=== PATIENT | male | born 1960 ===

== ENCOUNTER 2024-02-16 14:11 | Outpatient (RCR) | payer MEDICARE, SELFPAY ==
--- NOTE | 2024-02-16 15:43 | PT.OPE ---
[facility] Eval Start: 02/16/24 12:09 Freq: Status: Active Protocol: Document 02/16/24 15:42 CJT (Rec: 02/16/24 15:43 CJT [id number]) E-signed By Louis Ware PT Physical Therapy Outpatient Evaluation Insurance Information Recert Due Date 05/16/24 Insurance Name Medicaid,are Medical Diagnosis R sciatica Treating Diagnosis LBP with R sciatica Referring Hugh Srinivasan Subjective Preferred Name Ismael Subjective Pt presents with complaints of low back pain and R side sciatica. Was blowing leaves about 10 days ago for about 3 hours with a backpack blower. Pain is mostly in the upper right butt cheek. Pain extends down the front of pts jerome on R side. Pt notes that he compressed a disc years ago and traction was especially helpful. Sitting for extended periods (>60 minutes) causes significant pain. Walking helps. Taking a few Tylenol before bed. Pain Comments 09/20 Date of Last Physician Visit 02/13/24 Current Work Status Retired Precautions Therapy Limitations/Systems Review Not Limited Objective Other/Pertinent Objective Lumbar ROM Extension - no limitations, no pain Flexion - limited by abdominal mass, no pain R/L Side Bend - no limitations , no pain R/L Rotation - limited by abdominal mass, no pain R Hip ROM Flexion - 100 *limited by abdominal mass IR/ER - 19/35 Extension - DNT, pt unable to lay prone L Hip ROM Flexion - 100, limited by abdominal mass IR/ER - 32/35 Extension - DNT, pt unable to lay prone R Hip Strength Flexion - 5/5 MMT Abduction - 4/5 MMT Adduction - 5/5 MMT IR - 5/5 MMT ER - 5/5 MMT Extension - 4/5 MMT L Hip Strength Flexion - 5/5 MMT Abduction - 5/5 MMT Adduction - 5/5 MMT IR - 5/5 MMT ER - 5/5 MMT Extension - 4+/5 MMT R knee Extension - 5/5 MMT R Knee Flexion - 5/5 MMT L knee Extension - 5/5 MMT L knee Flexion - 5/5 MMT R ankle DF - 5/5 MMT L ankle DF - 5/5 MMT Gait: Special Testing Slump: negative B SLR: negative B FADIR: negative MYRNA: positive for reduced ROM in L>R hips Gypsy's: DNT Piriformis: DNT Hamstring: positive for increased tissue tension, no pain Pelvis: Unable Leg Length (R/L): unable Assessment Assessment/Impression Ismael is a very pleasant 63 year old male who presents to our clinic for evaluation and treatment of low back pain with R side sciatica. Testing today is inconclusive for exact cause of pts pain and I was unable to reproduce his symptoms in the clinic today. This is likely due to his current regimen of prednisone. With pts subjective report of nerve pain along his R jerome, he is likely suffering from nerve impingement at L5/S1 spine level due to disc herniation or foraminal stenosis. Neither flexion nor extension of the lumbar spine reproduced his pain and he was pain free in our clinic throughout today's exam. We utilized traction today as this has been helpful for Ismael in the past when he has suffered from similar symptoms . The nature of the pts condition was explained and all questions were answered to the pts satisfaction. Skilled PT services are medically necessary to address deficits and return patient to highest level of function. Recommend physical therapy sessions 1-2/ week for 4 weeks. Pt would like to see how his symptoms progress and call to schedule if he needs to return. Printout of HEP was given for I completion and pt gives verbal understanding of each exercise. If pt does not return to our clinic in next 30 days, this note will serve as his d/c note. Primary Functional Limitations Sitting Plan of Care Rehabilitation Potential Good Physical Therapy Goals STG - To be completed in 2-3 weeks: 1. Pt will report reduction in back pain by factor of 2 so that they may perform all ADLs with tolerable level of pain. 2. Pt will demonstrate ability to perform pelvic tilt with good coordination as indication of appropriate firing of pelvic and lumbar stabilizing muscles to provide greater support for pelvis and lumbar spine. 3. Pt will demonstrate 5/5 MMT for all LE motions without reproduction of pain to provide greater support to pelvis and lumbar spine. LTG - To be completed in 4 weeks: 1. Pt to be I with HEP so that they may I manage progression of symptoms. 2. Pt will report absence of back and leg pain with all activities so that he may return to completion of all ADLs without pain. Treatment Plan/Direct Interventions Electrical Stimulation,Joint Mobilization,Manual Therapy, Neuromuscular Re-ed,Self-Care/ Home Management,Therapeutic Activities,Therapeutic Exercises Frequency/Duration 1-2/week for 4 weeks Patient Will Be Discharged From Therapy Completion of LTG(s),Skills Plateau,Independent w/HEP, Independently Progressing Evaluation Billing Untimed Code Treatment Minutes 54 PT Eval No Charge No Complexity Low Certification Information Initial Certification Date 02/16/24 Ending Certification Date 05/16/24 Provider Signature Required Yes Provider Signature Shows Agreement With POC & Medical Necessity Physician NPI Number Write NPI# Here Physician Comment/Change : Physician Signature & Date Requested Please Sign/Date Here
== END 2024-04-20 15:56 | disposition home or self-care (01) ==
PROVIDERS: Visit Provider Family Medicine
DX: M54.41 Lumbago with sciatica, right side (principal); Z51.89 Encounter for other specified aftercare
CPT/HCPCS: 97012; 97161